=== PATIENT | male | born 1945 ===

== ENCOUNTER 2017-04-08 07:14 | Day surgery (SDC) | payer MEDICARE ==
[~2017-04-08] VITALS: Ht 170.2 cm; Wt 79.4 kg
[2017-04-08] VITALS (7 sets, daily range): BP systolic 118–144; BP diastolic 64–90
--- NOTE | 2017-04-08 06:56 | Anethesia Preoperative Eval ---
Anesthesia Pre-op PMH/ROS General Date of Evaluation: Apr 08, 2017 Time of Evaluation: 08:21 Anesthesiologist: chris ASA Score: ASA 2 Mallampati Score Class I : Soft palate, uvula, fauces, pillars visible Class II: Soft palate, uvula, fauces visible Class III: Soft palate, base of uvula visible Class IV: Only hard plate visible Mallampati Classification: Class II Surgeon: divya Diagnosis: GERD, constipation Surgical Procedure: egd diagnostic/colonoscopy Anesthesia History: none Social History: smoking - non-smoker Family History: no anesthesia problems Allergies: Coded Allergies: No Known Allergies (Unverified , 04/07/17) Medications: see eMAR Past Medical History Gastrointestinal/Genitourinary: Reports: GERD, other - constipation Endocrine: Reports: DM Anesthesia Pre-op Phys. Exam Physician Exam Last Vital Signs Date Time Temp Pulse Resp B/P Pulse Ox O2 Delivery O2 Flow Rate FiO2 04/08/17 07:50 97.0 72 20 121/78 97 Room Air Constitutional: NAD Neurologic: CN 2-12 intact Cardiovascular: RRR Respiratory: CTA Gastrointestinal: S/NT/ND Airway Exam Mallampati Score: Class II MO: full Neck: supple TMD: 3fb ROM: full Teeth: intact Anesthesia Pre-op A/P Labs Accucheck 126 Risk Assessment & Plan Assessment: GERD, constipation Plan: egd diagnostic/colonoscopy Status Change Before Surgery: No Pre-Antibiotics Drug: SHONNA Crews Apr 08, 2017 06:56
[~2017-04-08 07:14] MED LIST: LR 1000ml 1,000 ML IVLG SCH; METFORMIN HCL1000 M1 ORAL
--- NOTE | 2017-04-08 08:29 | Short Stay Surgery H&P ---
History of Present Illness History of Present Illness Chief Complaint weight loss, abdominal pains/GERDs HPI Bharat Griffiths is a 72 year old male who was admitted on for Gerd,Constipation Patient History Allergies: Coded Allergies: No Known Allergies (Unverified , 04/07/17) PAST MEDICAL HISTORY: (1) Hyperlipidemia (2) Diabetes Past Surgeries: Social History: Medication History Scheduled Metformin Hcl* (Metformin Hcl*), 1,000 MG ORAL BID, (Reported) Review of Systems Respiratory: Reports: no symptoms Skeletal: Reports: no symptoms Gastrointestinal: Reports: gastro esophageal reflux disease Genitourinary: Reports: no symptoms Neurologic: Reports: no symptoms Endocrine: Reports: diabetes - type 2 Hematologic: Reports: no symptoms Physical Exam Vital Signs Last Vital Signs Date Time Temp Pulse Resp B/P Pulse Ox O2 Delivery O2 Flow Rate FiO2 04/08/17 07:50 97.0 72 20 121/78 97 Room Air Skin: normal HENT: normal Heart: normal Lungs: normal Abdomen: normal Extremities: normal Genitourinary: normal Plan Plan of Care Upper and lower GI endoscopy Preop Interventions None Summary of Findings See the reports. Final Diagnosis: Attestation Are the patient's medical conditions optimized for surgery? Attestation Response: yes LAYNE MORENO Apr 08, 2017 08:29
[2017-04-08] MEDS ORDERED: LR 1000ml ONE (08:30)
[2017-04-08] MEDS ORDERED: Lidocaine 1% MPF 10mg/ml 5ml ONE (08:30)
[2017-04-08] MEDS ORDERED: Propofol 10mg/ml 20ml IV ONE (08:30)
--- NOTE | 2017-04-08 08:30 | Pre-Procedure Note/Attestation ---
Pre-Procedure Note/Attestation Complete Prior to Procedure Planned Procedure: left Procedure Narrative: Endoscopic examination of the upper and the lower GI tract. Indications for Procedure Pre-Operative Diagnosis: R/O GI CA/ Peptic ulcer/Gastritis Attestation I attest that I discussed the nature of the procedure; its benefits; risks and complications; and alternatives (and the risks and benefits of such alternatives ), prior to the procedure, with the patient (or the patient's legal sales representative). I attest that, if there was a reasonable possibility of needing a blood transfusion, the patient (or the patient's legal sales representative) was given the [place] [facility] [employer] [facility] standardized written summary, pursuant to the Jaleel Damaris Blood Safety Act ([place] Health and Safety Code # 1645, as amended). I attest that I re-evaluated the patient just prior to the surgery and that there has been no change in the patient's H&P, except as documented below: JOSHSAID Apr 08, 2017 08:30
[2017-04-08] MEDS ORDERED: LR 1000ml 1,000 ML IVLG SCH (08:53)
--- NOTE | 2017-04-08 08:53 | Immediate Post-Op Evaluation ---
Immediate Post-Op Evalulation Immediate Post-Op Evalulation Procedure: egd/colonoscopy Date of Evaluation: Apr 08, 2017 Time of Evaluation: 09:22 IV Fluids: 155ml lr Blood Products: none Estimated Blood Loss: negligible Blood Pressure Systolic: 121 Blood Pressure Diastolic: 80 Pulse Rate: 57 Respiratory Rate: 18 O2 Sat by Pulse Oximetry: 100 Temperature (Fahrenheit): 99.0 Pain Score (1-10): 0 Nausea: No Vomiting: No Complications none Patient Status: awake, reacts, patent Drug: SHONNA Crews Apr 08, 2017 08:53
--- NOTE | 2017-04-08 08:53 | 48 Hour Post Anesthesia Eval ---
Post Anesthesia Evaluation Procedure: egd/colonoscopy Date of Evaluation: Apr 08, 2017 Time of Evaluation: 09:23 Blood Pressure Systolic: 122 0: 84 Pulse Rate: 58 Respiratory Rate: 18 Temperature (Fahrenheit): 99.0 O2 Sat by Pulse Oximetry: 99 Nausea: No Vomiting: No Pain Intensity: 0 Hydration Status: adequate Cardiopulmonary Status: stable Mental Status/LOC: patient returned to baseline Post-Anesthesia Complications: none Follow-up care needed: N/A SHONNA BAIRD Apr 08, 2017 08:53
[2017-04-08] MEDS ORDERED: DiphenhydrAMINE 50mg/ml Inj IVP PRN (09:00)
[2017-04-08] MEDS ORDERED: Hydromorphone 0.5mg/0.5ml inj IVP PRN (09:00)
[2017-04-08] MEDS ORDERED: Atropine Inj 1mg/10ml Syr IV PRN (09:00)
[2017-04-08] MEDS ORDERED: Midazolam 2mg/2ml Inj IVP PRN (09:00)
--- NOTE | 2017-04-08 09:05 | Endoscopy Procedure Note ---
Endoscopy Procedure Note Indication for Procedure: weight loss/GERDs and abdominal pains Procedures Performed: EGD - Completely normal upper GI endoscopy. Biopsies were done per random from gastric body and duodenum (2nd portion)., colonoscopy - Poor colon preparation. Rare diverticulosis of the colon. 1/2 Cm pedunculated polyp at 35 Cm from anal opening removed by hot snare (looked bengin). Minimal hemorrhoids. Specimen: yes Pt Tolerated Procedure Well: Yes Estimated Blood Loss: none Anesthesiologist: Dr. Alvarez Anesthesia: moderate sedation Medication Given: see anesthesia record Implant(s) used?: No 50 yrs or older w/o bx or poly: Yes 10yrs. F/U not recommended: Yes 10 yrs. F/U needed: Yes Med reason:<3 yrs.: System Reason:<3 yrs.: Last colonoscopy >= to 3yrs: Yes LAYNE MORENO Apr 08, 2017 09:05
--- NOTE | 2017-04-08 09:06 | Discharge Instructions ---
Discharge Instructions Discharge Instructions Follow up with: See the doctor after 2 weeks in the office. For Congestive Heart Failure Reminder Report to your physician any weight gain of 5 pounds or more in one week. LAYNE MORENO Apr 08, 2017 09:06
--- NOTE | 2017-04-08 12:15 | Operative Note - Dictated ---
DATE OF OPERATION: 04/08/2017 PROCEDURE: Esophagogastroduodenoscopy with biopsy. SURGEON: Nayeli Newman M.D. PREOPERATIVE DIAGNOSES: 1. History of weight loss. 2. Abdominal pain. 3. Gastroesophageal reflux. POSTOPERATIVE DIAGNOSES: 1. Completely normal upper gastrointestinal endoscopy. 2. No evidence of ulcers, tumors, polyps, and stricture was found. 3. Random biopsies were obtained from gastric body and second portion of duodenum. MEDICATION USED: Per Dr. Goodwin. INSTRUMENT: GIF Olympus upper gastrointestinal video endoscope. DESCRIPTION OF PROCEDURE: The patient after arriving endoscopy unit, was told about risks and benefits of the procedure, which he accepted and signed the informed consent. He was then put on the left lateral decubitus position. After adequate IV sedation, the scope was gently passed through the cricopharyngeal area, was lodged into the upper esophagus, and gradually advanced towards gastroesophageal junction. The entire length of the esophagus looked normal. No evidence of varices, inflammatory process, ulcers, stricture, etc. was found. No tumors. GE junction also looked normal without any evidence of hiatal hernia or Bliss's. At this time, the scope was advanced into the stomach. Gastric cavity was distended with insufflation of air. The areas of the fundus, the body and the antrum were examined in an patient office rep fashion, which basically revealed no pathology. The gastric mucosa looked normal. There was no polyps or tumors. One random biopsy from gastric body obtained and subsequently scope was passed through the normal looking pylorus. First and second portion of duodenum were also examined, which revealed no evidence of particular pathology including ulcers, tumors, stricture, etc. At this point, one random biopsy from the proximal part of the second portion of duodenum was obtained and subsequently procedure was terminated. The patient tolerated the procedure well. Nayeli Newman M.D. DR: KINZA JOB#: [id number] CC:
--- NOTE | 2017-04-08 14:15 | Operative Note - Dictated ---
DATE OF OPERATION: 04/08/2017 PROCEDURE: Total colonoscopy with polypectomy. SURGEON: Nayeli Newman M.D. PREOPERATIVE DIAGNOSES: 1. Weight loss. 2. Abdominal pain. POSTOPERATIVE DIAGNOSES: 1. Poor colonic preparation. 2. diverticulosis of the colon. 3. Incidental finding of 0.5 centimeter pedunculated polypoid lesion over the 35 centimeter from anus consistent with adenomatous polyp removed with a snare cautery forceps totally. 4. Minimal internal hemorrhoids. MEDICATION USED: Per Dr. Goodwin. INSTRUMENT: GIF Olympus video colonoscope. DESCRIPTION OF PROCEDURE: The patient after arriving in the endoscopy unit, was told about risks and benefits of the procedure, which he accepted and signed the informed consent. He was then put in the left lateral decubitus position. After adequate IV sedation, the scope was gently passed through the anal area and a retroflexion maneuver, which was applied in the rectum revealed evidence of minimal internal hemorrhoids, which were not friable. The rest of the rectum looked normal. There was, however, liquidy stool along the colon making the examination quite difficult and it was suggestive of poor colonic preparation. However, possibility of some occasional diminutive small polypoid lesions still remains. There was no gross pathology except the finding of 0.5 centimeter pedunculated polypoid lesion was seen over the 35 centimeter from anus, which looked quite benign and it was removed with help of snare forceps and the specimen sent to the laboratory. The rest of the colon revealed somewhat redundant since the left colon with occasional diverticular lesions of no great significance. Finally, the scope reached to the splenic flexure, transverse colon, right hepatic flexure, and finally was guided into the right colon all the way to the base of the cecum. Multiple irrigations of the colon was given, however, there was no underlying pathology such as tumors, polyps, ulcers, stricture, etc found. Finally, within seven minutes, the scope was gradually pulled out from the cecal area and reexamination of the colon did not add anymore pathology. The patient tolerated the procedure well and left the endoscopy room in good condition. Nayeli Newman M.D. DR: KINZA JOB#: [id number] CC:
== END 2017-04-08 10:00 | disposition home or self-care (01) ==
LOC: GAS 07:14
DX: K29.50 Unspecified chronic gastritis without bleeding (principal); K21.9 Gastro-esophageal reflux disease without esophagitis; R63.4 Abnormal weight loss; K57.30 Diverticulosis of large intestine without perforation or abscess without bleeding; K62.1 Rectal polyp; K64.8 Other hemorrhoids; E11.9 Type 2 diabetes mellitus without complications; E78.5 Hyperlipidemia, unspecified
CPT/HCPCS: 43239; 45385; 82962; J2704; J7120; 94003; 94150